=== PATIENT | female | born 1945 | race Two or more races ===

== ENCOUNTER 2019-04-30 11:57 | Inpatient (IN) | payer MEDICARE, OTHER ==
[~2019-04-30] VITALS: Ht 152.4 cm; Wt 39.0 kg
--- NOTE | 2019-04-30 12:30 | NUR ---
PATIENT ASSISTED TO RESTROOM, AMBULATORY. SCREAMING AND FIGHTING WITH SISTER.
--- NOTE | 2019-04-30 12:30 | NUR ---
BIB Family (sister) For "Psych evaluation" Pt agitated/restless. Anxious appears unkempt. PATIENT A/OX2-3, AGITATED AND RESTLESS. SCREAMING AT SISTER. NO DISTRESS NOTED.
[2019-04-30 12:33] LABS: APPEARANCE,URINE Clear (CLEAR); BILIRUBIN,URINE Negative (NEGATIVE); BLOOD, URINE Large Ery/uL (NEGATIVE); COLOR,URINE Yellow (YELLOW); KETONES,URINE Negative (NEGATIVE); LEUKOCYTE ESTERASE ,URINE Small (NEGATIVE); NITRITE, URINE Negative (NEGATIVE); PH,URINE 5.5 (5.0-8.0); PROTEIN,URINE 30 mg/dl (NEGATIVE); UGLUCOSE Negative (NEGATIVE); UROBILINOGEN,URINE 0.2 EU/dL (0.2)
[2019-04-30 12:39] LABS: BACTERIA,URINE Few /HPF (None Seen); SQUAMOUS EPITHELIAL CELL,UR Few /HPF (None Seen)
[2019-04-30 12:43] LABS: BASOPHILS # (AUTO) 0.1 /CMM (0.0-0.2); BASOPHILS % (AUTO) 0.5 % (0.0-2.0); EOSINOPHILS % (AUTO) 0.7 % (0.0-6.0); HEMATOCRIT 44 % (33-45); HEMOGLOBIN 15.1 g/dL (11.5-14.8); LYMPHOCYTES # (AUTO) 1.6 /CMM (0.8-4.8); LYMPHOCYTES % (AUTO) 14.1 % (20.0-44.0); MEAN CORPUSCULAR HGB CONC 34 g/dl (31.0-36.0); MEAN CORPUSCULAR VOLUME 91 fL (82-100); MONOCYTES % (AUTO) 8.3 % (2.0-12.0); NEUTROPHILS # (AUTO) 8.7 /CMM (1.8-8.9); NEUTROPHILS % (AUTO) 76.4 % (43.0-81.0); PLATELET COUNT (AUTO) 295 /CMM (150-450); RED BLOOD CELL COUNT(AUTO) 4.86 MIL/uL (4.0-5.2); WHITE BLOOD COUNT (AUTO) 11.4 K/uL (4.3-11.0)
[2019-04-30] MEDS ORDERED: HALOPERIDOL LACTATE INJ 5 MG/ML VIAL ONE (12:44)
[2019-04-30 12:51] LABS: CALCIUM, SERUM 9.5 mg/dL (8.5-10.1); CARBON DIOXIDE 23 mmol/L (21-32); CHLORIDE 97 mmol/L (98-107); CREATININE 0.7 mg/dL (0.6-1.3); GLUCOSE 117 mg/dL (74-106); POTASSIUM 3.4 mmol/L (3.5-5.1); SODIUM SERUM 133 mmol/L (136-145); UREA NITROGEN, BLOOD 26 mg/dL (7-18)
[2019-04-30] MEDS ORDERED: HALOPERIDOL LACTATE INJ 5 MG/ML VIAL IM ONE (13:00)
[2019-04-30 13:04] LABS: ALANINE AMINOTRANSFERASE 36 U/L (12-78); ALBUMIN 4.1 g/dL (3.4-5.0); ALCOHOL, BLOOD < 3 mg/dL (0-0); ALKALINE PHOSPHATASE 70 U/L (46-116); ASPARTATE AMINOTRANSFERASE 33 U/L (15-37); BILIRUBIN,DIRECT 0.1 mg/dL (0.0-0.2); BILIRUBIN,TOTAL 0.4 mg/dL (0.2-1.0); TOTAL PROTEIN, SERUM 7.5 g/dL (6.4-8.2)
[2019-04-30 13:05] LABS: SALICYLATE 1.7 mg/dL (2.8-20.0)
[2019-04-30 13:06] LABS: ACETAMINOPHEN 0 ug/ml (10-30)
[2019-04-30] MEDS ORDERED: SIMV-46 PO (13:06)
[2019-04-30] MEDS ORDERED: LOSA50TA39 PO (13:06)
[2019-04-30] MEDS ORDERED: HYDR25TA4 PO (13:06)
[2019-04-30] MEDS ORDERED: METO-357 PO (13:06)
[2019-04-30] MEDS ORDERED: FAMO40TA7 PO (13:06)
[2019-04-30] MEDS ORDERED: DIPH50CA38 PO (13:06)
[2019-04-30] MEDS ORDERED: ALPR0.5T8 PO (13:06)
[2019-04-30] MEDS ORDERED: FLUR30CA13 PO (13:06)
[2019-04-30] MEDS ORDERED: FOLI0.8T PO (13:06)
[2019-04-30] MEDS ORDERED: LISI40TA4 PO (13:06)
--- NOTE | 2019-04-30 13:21 | NUR ---
HEALTH CARE AIDE ELDA FAJARDO AT BEDSIDE
--- NOTE | 2019-04-30 13:43 | NUR ---
GOT BED 219.B
--- NOTE | 2019-04-30 14:01 | NUR ---
report given to mayuri fischer.
--- NOTE | 2019-04-30 14:01 | NUR ---
patient refused ekg. explained risks and benefits, still refused. Dr. Vargas made aware
--- NOTE | 2019-04-30 14:53 | NUR ---
patient transferred to [facility] via wheelchair. in stable condition.
[2019-04-30] MEDS ORDERED: MAG HYDROX/AL HYDROX/SIMETH 30 ML UDC PO PRN (15:00)
[2019-04-30] MEDS ORDERED: BLOOD SUGAR DIAGNOSTIC 1 EACH STRIP IN ONE (15:00)
[2019-04-30] MEDS ORDERED: MAGNESIUM HYDROXIDE 30 ML UDC PO PRN (15:00)
[2019-04-30] MEDS ORDERED: ACETAMINOPHEN 325 MG TABLET PO PRN (15:00)
--- NOTE | 2019-04-30 15:40 | NUR ---
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 ACCORDING TO HOLD AND SISTER PATIENT IS SEEING PEOPLE WHERE SHE LIVES AND SEEING THOSE PEOPLE GOING THROUGH [place]. PATIENT IS HITTING HER SISTER CAUSING BRUISING. PATIENT IS MANIC, AGITATED AND AGGRESSIVE. PATIENT IS SPRAYING FOOD WITH LYSOL. PATIENT CAME FROM HOME AND LIVES ALONE. UPON FACE TO FACE ASSESSMENT PATIENT IS MALODOROUS, DISHEVELED, WEARING DIRTY CLOTHES AND MULTIPLE LAYERS. PATIENT IS AGITATED, UPSET, AND ANGRY. DENIES SUICIDAL OR HOMICIDAL IDEATION. PATIENT REFUSED SKIN ASSESSMENT. PATIENT RIGHTS HANDBOOK AND GUIDE TO PRESCRIPTIONS GIVEN. BP IS 205/108. DR. PICKENS NOTIFIED OF ADMISSION AND BLOOD PRESSURE. MEDICATION BEING RECONCILED. DR. MEYERS NOTIFIED OF ADMISSION WITH ORDERS.
[2019-04-30 16:00] VITALS: BP 189/100
[2019-04-30] MEDS ORDERED: diphenhydrAMINE HCL 50 MG CAPSULE PO PRN (16:00)
[2019-04-30] MEDS ORDERED: FAMOTIDINE 40 MG TABLET PO PRN (16:00)
[2019-04-30 16:05] VITALS: BP 205/108
[2019-04-30] MEDS: AMLODIPINE BESYLATE 5 MG TABLET PO SCH (16:17)
[2019-04-30] MEDS: LORAZEPAM 0.5 MG TABLET PO PRN (16:17)
[2019-04-30] MEDS: METOPROLOL SUCCINATE 50 MG TAB.SR.24H PO SCH (16:27)
[2019-04-30] MEDS: LISINOPRIL (20MG) 20 MG TABLET PO SCH ×2 (16:30→18:22)
[2019-04-30] MEDS: FOLIC ACID 1 MG TABLET PO SCH (17:00)
[2019-04-30] MEDS: LOSARTAN POTASSIUM 50 MG TABLET PO SCH (17:00)
[2019-04-30] MEDS ORDERED: ALPRAZOLAM 0.5 MG TABLET PO SCH (17:00)
[2019-04-30 17:16] VITALS: BP 202/101
[2019-04-30 18:17] VITALS: BP 208/104
[2019-04-30] MEDS: SIMVASTATIN 20 MG TABLET PO SCH (18:33)
[2019-04-30] MEDS: hydrALAZINE HCL 50 MG TABLET PO ONE ×2 (18:33→18:45)
--- NOTE | 2019-04-30 18:45 | NUR ---
PT SPIT OUT HYDRALAZINE. AFTER EDUCATION WITH A COUPLE RN SHE AGREED TO TAKE IT. DR. PICKENS IS PUTTING THE ORDER IN. LAST BP 208/104
[2019-04-30] MEDS ORDERED: hydrALAZINE HCL 50 MG TABLET PO ONE (19:00)
[2019-04-30] MEDS: SULFAMETH/TRIMETH 800/160 MG 1 UDTAB TABLET PO SCH (20:06)
[2019-04-30 20:52] VITALS: BP 182/110
[2019-04-30] MEDS: TEMAZEPAM 7.5 MG CAPSULE PO PRN (21:15)
[2019-04-30] MEDS ORDERED: FLURAZEPAM HCL 30 MG PO SCH (22:00)
[2019-04-30 22:30] VITALS: BP 154/81
[2019-05-01 07:10] LABS: BASOPHILS % (AUTO) 0.5 % (0.0-2.0); EOSINOPHILS % (AUTO) 1.3 % (0.0-6.0); HEMATOCRIT 41 % (33-45); HEMOGLOBIN 14.2 g/dL (11.5-14.8); MEAN CORPUSCULAR HGB CONC 34 g/dl (31.0-36.0); MEAN CORPUSCULAR VOLUME 91 fL (82-100); MONOCYTES # (AUTO) 0.7 /CMM (0.1-1.30); MONOCYTES % (AUTO) 9.8 % (2.0-12.0); NEUTROPHILS # (AUTO) 5.1 /CMM (1.8-8.9); NEUTROPHILS % (AUTO) 73.4 % (43.0-81.0); PLATELET COUNT (AUTO) 262 /CMM (150-450); RED BLOOD CELL COUNT(AUTO) 4.56 MIL/uL (4.0-5.2)
[2019-05-01 07:44] LABS: ALBUMIN 3.6 g/dL (3.4-5.0); BILIRUBIN,TOTAL 0.7 mg/dL (0.2-1.0); CALCIUM, SERUM 8.7 mg/dL (8.5-10.1); CREATININE 0.8 mg/dL (0.6-1.3); TOTAL PROTEIN, SERUM 6.5 g/dL (6.4-8.2)
[2019-05-01 07:54] LABS: CHOLESTEROL 170 mg/dL (<200); HDL CHOLESTEROL 74 mg/dL (40-60); LDL 70 mg/dL (0-99); TRIGLYCERIDES 114 mg/dL (30-150)
[2019-05-01 08:00] VITALS: BP 147/74
[2019-05-01] MEDS ORDERED: FIXODENT 1 EA TUBE MM PRN (08:00)
[2019-05-01] MEDS: SULFAMETH/TRIMETH 800/160 MG 1 UDTAB TABLET PO SCH ×2 (08:38→21:13)
[2019-05-01] MEDS: AMLODIPINE BESYLATE 5 MG TABLET PO SCH (08:38)
[2019-05-01] MEDS: METOPROLOL SUCCINATE 50 MG TAB.SR.24H PO SCH ×2 (08:39→21:14)
[2019-05-01] MEDS: FOLIC ACID 1 MG TABLET PO SCH ×2 (08:39→16:59)
[2019-05-01] MEDS: LOSARTAN POTASSIUM 50 MG TABLET PO SCH ×2 (08:39→16:59)
[2019-05-01] MEDS: LISINOPRIL (20MG) 20 MG TABLET PO SCH (08:41)
[2019-05-01] MEDS: POTASSIUM CHLORIDE 20 MEQ TAB.PRT.SR PO SCH ×3 (11:30→13:10)
--- NOTE | 2019-05-01 11:36 | NUR ---
Contact with DPOA: NILSON contacted the pt.s sister/DPOA, Chika Turcios [phone] to discuss discharge planning and treatment plan. Chika expressed understanding and requested that contact Chika. NILSON informed Elliot from [employer] and left a note for Dr. Hughes. Per Chika, she plans to visit the pt. after 4 pm. NILSON informed pt. and pt. was glad to hear that.
--- NOTE | 2019-05-01 11:38 | NUR ---
Initial Discharge plan: The pt. currently lives alone at home [[address] [place], [address]; [phone]]. Per pt. she would like to return there once ready for discharge. NILSON spoke to pt.'s DPOA/Sister, Chika Turcios [phone] who stated that she would like the pt. to go to [facility] [[address] [place] [address]; [phone]] if the pt. requires close supervision at the time of discharge. Per Chika, if pt. is back to baseline and does not require close supervision, she is comfortable with pt. returning home. Per Chika, she can then support the pt. as needed. NILSON or other SW will collaborate with IDT to ensure safe and proper discharge planning.
[2019-05-01] MEDS: ENSURE ENLIVE 237 ML LIQUID (VANILLA) PO SCH ×2 (13:45→17:00)
[2019-05-01 16:00] VITALS: BP 128/66
[2019-05-01] MEDS: SIMVASTATIN 20 MG TABLET PO SCH (17:00)
[2019-05-01 19:59] VITALS: BP 145/68
[2019-05-01] MEDS: risperiDONE-M 0.5 MG TAB.RAPDIS PO SCH (20:05)
[2019-05-01] MEDS: LORAZEPAM 0.5 MG TABLET PO PRN (22:01)
[2019-05-01 23:00] VITALS: BP 135/80
[2019-05-02] MEDS: TEMAZEPAM 7.5 MG CAPSULE PO PRN (01:38)
--- NOTE | 2019-05-02 06:37 | NUR ---
RN NOTES: PT. RESTING WELL IN NIGHTS AND MED COMPLY, NO ACUTE DISTRESS NOTED, DENIES ANY DISCOMFORT , BUT PT. REFUSED TO TAKING SHOWER , REFUSED TO CHANGE HOSPITAL GOWN, ENCOURAGE AND MOTIVATED , WILL CONTINUITY WITH CARE.
--- NOTE | 2019-05-02 06:47 | NUR ---
RN NOTES: PT. REFUSED AM LABS , ENCOURGED X3 STILL REFUSED , ENDORSE TO ON COMING NURSE FOR CONTINUITY WITH CARE.
[2019-05-02 08:00] VITALS: BP 146/86
[2019-05-02] MEDS: SULFAMETH/TRIMETH 800/160 MG 1 UDTAB TABLET PO SCH ×2 (08:31→20:26)
[2019-05-02] MEDS: FOLIC ACID 1 MG TABLET PO SCH ×2 (08:31→16:28)
[2019-05-02] MEDS: AMLODIPINE BESYLATE 5 MG TABLET PO SCH (08:32)
[2019-05-02] MEDS: LOSARTAN POTASSIUM 50 MG TABLET PO SCH ×2 (08:32→16:28)
[2019-05-02] MEDS: METOPROLOL SUCCINATE 50 MG TAB.SR.24H PO SCH ×2 (08:32→20:26)
[2019-05-02] MEDS: LISINOPRIL (20MG) 20 MG TABLET PO SCH (08:33)
[2019-05-02] MEDS: ENSURE ENLIVE 237 ML LIQUID (VANILLA) PO SCH ×3 (08:38→17:00)
[2019-05-02 09:45] LABS: CALCIUM, SERUM 8.8 mg/dL (8.5-10.1); CREATININE 1.2 mg/dL (0.6-1.3); POTASSIUM 4.3 mmol/L (3.5-5.1)
[2019-05-02 16:00] VITALS: BP 135/63
[2019-05-02] MEDS: SIMVASTATIN 20 MG TABLET PO SCH (18:20)
[2019-05-02] MEDS: risperiDONE-M 0.5 MG TAB.RAPDIS PO SCH (19:51)
[2019-05-02 20:30] VITALS: BP 142/68
[2019-05-03] MEDS: TEMAZEPAM 7.5 MG CAPSULE PO PRN ×2 (02:09→23:15)
[2019-05-03 08:00] VITALS: BP 149/81
[2019-05-03] MEDS: FOLIC ACID 1 MG TABLET PO SCH ×2 (08:11→16:15)
[2019-05-03] MEDS: SULFAMETH/TRIMETH 800/160 MG 1 UDTAB TABLET PO SCH (08:11)
[2019-05-03] MEDS: LISINOPRIL (20MG) 20 MG TABLET PO SCH (08:12)
[2019-05-03] MEDS: AMLODIPINE BESYLATE 5 MG TABLET PO SCH (08:12)
[2019-05-03] MEDS: METOPROLOL SUCCINATE 50 MG TAB.SR.24H PO SCH ×2 (08:12→20:34)
[2019-05-03] MEDS: LOSARTAN POTASSIUM 50 MG TABLET PO SCH ×2 (08:12→16:15)
[2019-05-03] MEDS: ENSURE ENLIVE 237 ML LIQUID (VANILLA) PO SCH ×3 (09:03→17:00)
[2019-05-03 16:00] VITALS: BP 148/79
[2019-05-03] MEDS: SIMVASTATIN 20 MG TABLET PO SCH (18:05)
[2019-05-03 20:17] VITALS: BP 148/76
[2019-05-03] MEDS: risperiDONE-M 0.5 MG TAB.RAPDIS PO SCH (20:33)
[2019-05-04 08:00] VITALS: BP 153/90
[2019-05-04] MEDS: AMLODIPINE BESYLATE 5 MG TABLET PO SCH (08:42)
[2019-05-04] MEDS: LISINOPRIL (20MG) 20 MG TABLET PO SCH (08:42)
[2019-05-04] MEDS: FOLIC ACID 1 MG TABLET PO SCH ×2 (08:42→17:09)
[2019-05-04] MEDS: METOPROLOL SUCCINATE 50 MG TAB.SR.24H PO SCH ×2 (08:43→20:24)
[2019-05-04] MEDS: LOSARTAN POTASSIUM 50 MG TABLET PO SCH ×2 (08:43→17:09)
[2019-05-04] MEDS: ENSURE ENLIVE 237 ML LIQUID (VANILLA) PO SCH ×3 (08:53→17:00)
--- NOTE | 2019-05-04 10:25 | NUR ---
DPOA Contact: NILSON called the pts sister/DPOA, Chika Turcios ([phone]), and informed her that she saw a note stating that she would like the pt to go to [facility] [place]. She stated that she does not think that the pt can return to her home this week because it will not be in a proper living condition. She stated that she spoke to Elpidio at the facility and they stated that the pt can stay short term and then be discharged back to her home once it is ready. NILSON stated that she will send a referral.
[2019-05-04 16:00] VITALS: BP 150/90
--- NOTE | 2019-05-04 16:18 | NUR ---
SS Group Note 05/04/19: SW went to patient's room to invite patient to attend today's support group at 2:00pm regarding recognizing positive aspects in their life. Patient refused stating, "I don't want to go to that". SW encouraged patient to sit in and listen but patient refused.
[2019-05-04] MEDS: SIMVASTATIN 20 MG TABLET PO SCH (18:08)
[2019-05-04] MEDS ORDERED: risperiDONE-M 0.5 MG TAB.RAPDIS PO SCH (20:00)
[2019-05-04 21:07] VITALS: BP 149/90
[2019-05-04] MEDS: BENZTROPINE MESYLATE (1 MG) 1 MG TABLET PO SCH (22:33)
[2019-05-04] MEDS: TEMAZEPAM 7.5 MG CAPSULE PO PRN (23:36)
--- NOTE | 2019-05-04 23:39 | NUR ---
[facility]PS RN NOTES: PT C/O UNABLE TO SLEEP. OFFERED PT RESTORIL 7.5MG PO PRN ORDERED. PT AGREED TO TAKE MEDICATION NEEDED. ADMINISTERED MEDICATION. PT TOLERATED WELL. CONTINUE TO MONITOR.
[2019-05-05 08:00] VITALS: BP 147/77
[2019-05-05] MEDS: LOSARTAN POTASSIUM 50 MG TABLET PO SCH ×2 (09:18→17:24)
[2019-05-05] MEDS: AMLODIPINE BESYLATE 5 MG TABLET PO SCH (09:19)
[2019-05-05] MEDS: LISINOPRIL (20MG) 20 MG TABLET PO SCH (09:19)
[2019-05-05] MEDS: ENSURE ENLIVE 237 ML LIQUID (VANILLA) PO SCH ×3 (09:20→16:56)
[2019-05-05] MEDS: FOLIC ACID 1 MG TABLET PO SCH ×2 (09:20→17:23)
[2019-05-05] MEDS: METOPROLOL SUCCINATE 50 MG TAB.SR.24H PO SCH ×2 (09:20→20:37)
--- NOTE | 2019-05-05 10:21 | NUR ---
PC Hearing Notification: SW called the pts sister/DPOA, Chika Turcios ([phone]), and informed her that the pt will be having a hearing today and explained what that would entail.
[2019-05-05] MEDS: DIVALPROEX SODIUM 125 MG CAP.SPRINK PO SCH ×2 (13:00→20:41)
--- NOTE | 2019-05-05 14:03 | NUR ---
SNF Referral: SW faxed a SNF referral to [facility] with attn to Radha to the fax number: [phone].
[2019-05-05 16:00] VITALS: BP 142/76
[2019-05-05] MEDS: SIMVASTATIN 20 MG TABLET PO SCH (17:24)
[2019-05-05] MEDS: risperiDONE-M 0.5 MG TAB.RAPDIS PO SCH (20:37)
[2019-05-05 21:08] VITALS: BP 151/76
[2019-05-05] MEDS: BENZTROPINE MESYLATE (1 MG) 1 MG TABLET PO SCH (22:45)
[2019-05-05] MEDS: TEMAZEPAM 7.5 MG CAPSULE PO PRN (23:10)
--- NOTE | 2019-05-05 23:15 | NUR ---
given restoril 7.5 mg per patients request d/t unable to sleep. will continue to monitor closely.
[2019-05-06 08:00] VITALS: BP 146/79
[2019-05-06] MEDS: risperiDONE 1 MG TABLET PO SCH (09:00)
[2019-05-06] MEDS: ENSURE ENLIVE 237 ML LIQUID (VANILLA) PO SCH ×3 (09:00→16:44)
[2019-05-06] MEDS: LOSARTAN POTASSIUM 50 MG TABLET PO SCH ×2 (09:27→16:44)
[2019-05-06] MEDS: FOLIC ACID 1 MG TABLET PO SCH ×2 (09:27→16:42)
[2019-05-06] MEDS: DIVALPROEX SODIUM 125 MG CAP.SPRINK PO SCH ×2 (09:27→21:28)
[2019-05-06] MEDS: AMLODIPINE BESYLATE 5 MG TABLET PO SCH (09:27)
[2019-05-06] MEDS: LISINOPRIL (20MG) 20 MG TABLET PO SCH (09:27)
[2019-05-06] MEDS: METOPROLOL SUCCINATE 50 MG TAB.SR.24H PO SCH ×2 (09:28→21:27)
[2019-05-06 16:00] VITALS: BP 144/77
[2019-05-06] MEDS: SIMVASTATIN 20 MG TABLET PO SCH (16:45)
[2019-05-06] MEDS: risperiDONE-M 0.5 MG TAB.RAPDIS PO SCH (19:55)
[2019-05-06 20:00] VITALS: BP 151/84
[2019-05-06] MEDS: BENZTROPINE MESYLATE (1 MG) 1 MG TABLET PO SCH (21:27)
[2019-05-06 22:08] VITALS: BP 151/84
[2019-05-06] MEDS: TEMAZEPAM 7.5 MG CAPSULE PO PRN (23:02)
[2019-05-07 08:00] VITALS: BP 161/81
[2019-05-07] MEDS: DIVALPROEX SODIUM 125 MG CAP.SPRINK PO SCH ×2 (09:00→22:36)
[2019-05-07] MEDS: FOLIC ACID 1 MG TABLET PO SCH ×2 (09:00→17:53)
[2019-05-07] MEDS: risperiDONE 1 MG TABLET PO SCH (09:00)
[2019-05-07] MEDS: LOSARTAN POTASSIUM 50 MG TABLET PO SCH ×2 (09:01→17:54)
[2019-05-07] MEDS: LISINOPRIL (20MG) 20 MG TABLET PO SCH (09:01)
[2019-05-07] MEDS: METOPROLOL SUCCINATE 50 MG TAB.SR.24H PO SCH ×3 (09:24→21:34)
[2019-05-07] MEDS: ENSURE ENLIVE 237 ML LIQUID (VANILLA) PO SCH ×3 (09:25→17:56)
[2019-05-07] MEDS: AMLODIPINE BESYLATE 5 MG TABLET PO SCH (09:25)
--- NOTE | 2019-05-07 10:00 | NUR ---
ms rn patient is compliant,to her care, though sister is so demanding and weird.
[2019-05-07 16:00] VITALS: BP 170/86
[2019-05-07] MEDS: HYDROCHLOROTHIAZIDE 25 MG TABLET PO PRN (17:55)
[2019-05-07] MEDS: SIMVASTATIN 20 MG TABLET PO SCH (18:47)
[2019-05-07] MEDS: risperiDONE-M 0.5 MG TAB.RAPDIS PO SCH (20:22)
[2019-05-07 21:03] VITALS: BP 143/84
[2019-05-07] MEDS: BENZTROPINE MESYLATE (1 MG) 1 MG TABLET PO SCH (21:36)
[2019-05-08 08:00] VITALS: BP 155/87
[2019-05-08] MEDS: LISINOPRIL (20MG) 20 MG TABLET PO SCH (08:14)
[2019-05-08] MEDS: METOPROLOL SUCCINATE 50 MG TAB.SR.24H PO SCH ×2 (08:14→20:45)
[2019-05-08] MEDS: LOSARTAN POTASSIUM 50 MG TABLET PO SCH ×2 (08:15→17:52)
[2019-05-08] MEDS: AMLODIPINE BESYLATE 5 MG TABLET PO SCH (08:15)
[2019-05-08] MEDS: FOLIC ACID 1 MG TABLET PO SCH ×2 (08:15→17:52)
[2019-05-08] MEDS: risperiDONE 1 MG TABLET PO SCH (08:16)
[2019-05-08] MEDS: ENSURE ENLIVE 237 ML LIQUID (VANILLA) PO SCH ×3 (08:30→17:51)
[2019-05-08] MEDS: DIVALPROEX SODIUM 125 MG CAP.SPRINK PO SCH ×2 (08:30→21:36)
[2019-05-08 16:00] VITALS: BP 148/77
[2019-05-08] MEDS: SIMVASTATIN 20 MG TABLET PO SCH (17:51)
[2019-05-08] MEDS: risperiDONE-M 0.5 MG TAB.RAPDIS PO SCH (20:09)
[2019-05-08 20:26] VITALS: BP 154/84
[2019-05-08] MEDS: BENZTROPINE MESYLATE (1 MG) 1 MG TABLET PO SCH (21:35)
[2019-05-09] MEDS: TEMAZEPAM 7.5 MG CAPSULE PO PRN ×2 (00:36→23:14)
[2019-05-09 06:56] LABS: BASOPHILS % (AUTO) 0.8 % (0.0-2.0); HEMATOCRIT 36 % (33-45); HEMOGLOBIN 12.5 g/dL (11.5-14.8); LYMPHOCYTES # (AUTO) 0.7 /CMM (0.8-4.8); LYMPHOCYTES % (AUTO) 11.9 % (20.0-44.0); MEAN CORPUSCULAR HGB CONC 35 g/dl (31.0-36.0); MEAN CORPUSCULAR VOLUME 90 fL (82-100); MONOCYTES # (AUTO) 0.7 /CMM (0.1-1.30); MONOCYTES % (AUTO) 12.7 % (2.0-12.0); NEUTROPHILS # (AUTO) 4.2 /CMM (1.8-8.9); NEUTROPHILS % (AUTO) 71.6 % (43.0-81.0); PLATELET COUNT (AUTO) 234 /CMM (150-450); RED BLOOD CELL COUNT(AUTO) 3.95 MIL/uL (4.0-5.2); WHITE BLOOD COUNT (AUTO) 5.8 K/uL (4.3-11.0)
[2019-05-09 07:58] LABS: ALBUMIN 2.9 g/dL (3.4-5.0); BILIRUBIN,TOTAL 0.5 mg/dL (0.2-1.0); CALCIUM, SERUM 8.4 mg/dL (8.5-10.1); CREATININE 0.6 mg/dL (0.6-1.3); POTASSIUM 4.2 mmol/L (3.5-5.1)
[2019-05-09 08:00] VITALS: BP 156/80
[2019-05-09] MEDS: LOSARTAN POTASSIUM 50 MG TABLET PO SCH ×2 (08:24→17:22)
[2019-05-09] MEDS: AMLODIPINE BESYLATE 5 MG TABLET PO SCH (08:24)
[2019-05-09] MEDS: DIVALPROEX SODIUM 125 MG CAP.SPRINK PO SCH (08:24)
[2019-05-09] MEDS: FOLIC ACID 1 MG TABLET PO SCH ×2 (08:25→17:22)
[2019-05-09] MEDS: LISINOPRIL (20MG) 20 MG TABLET PO SCH (08:25)
[2019-05-09] MEDS: METOPROLOL SUCCINATE 50 MG TAB.SR.24H PO SCH ×2 (08:25→20:34)
[2019-05-09] MEDS: ENSURE ENLIVE 237 ML LIQUID (VANILLA) PO SCH ×3 (08:34→17:22)
[2019-05-09] MEDS: risperiDONE 1 MG TABLET PO SCH ×2 (08:34→08:49)
[2019-05-09 16:00] VITALS: BP 146/86
[2019-05-09] MEDS: SIMVASTATIN 20 MG TABLET PO SCH (17:22)
[2019-05-09] MEDS: risperiDONE-M 0.5 MG TAB.RAPDIS PO SCH (20:00)
[2019-05-09 20:41] VITALS: BP 147/80
[2019-05-09] MEDS: BENZTROPINE MESYLATE (1 MG) 1 MG TABLET PO SCH (21:29)
[2019-05-10] MEDS: ENSURE ENLIVE 237 ML LIQUID (VANILLA) PO SCH ×3 (07:54→17:02)
[2019-05-10 08:00] VITALS: BP 139/83
[2019-05-10] MEDS: AMLODIPINE BESYLATE 5 MG TABLET PO SCH (08:15)
[2019-05-10] MEDS: risperiDONE 1 MG TABLET PO SCH (08:15)
[2019-05-10] MEDS: FOLIC ACID 1 MG TABLET PO SCH ×2 (08:15→17:02)
[2019-05-10] MEDS: METOPROLOL SUCCINATE 50 MG TAB.SR.24H PO SCH ×2 (08:15→20:14)
[2019-05-10] MEDS: HYDROCHLOROTHIAZIDE 25 MG TABLET PO PRN (08:16)
[2019-05-10] MEDS: LOSARTAN POTASSIUM 50 MG TABLET PO SCH ×2 (08:17→17:02)
[2019-05-10] MEDS: LISINOPRIL (20MG) 20 MG TABLET PO SCH (08:22)
[2019-05-10 16:00] VITALS: BP 130/78
[2019-05-10] MEDS: SIMVASTATIN 20 MG TABLET PO SCH (17:02)
[2019-05-10] MEDS: risperiDONE-M 0.5 MG TAB.RAPDIS PO SCH (20:12)
[2019-05-10 20:24] VITALS: BP 138/76
[2019-05-10] MEDS: BENZTROPINE MESYLATE (1 MG) 1 MG TABLET PO SCH (21:33)
[2019-05-11 07:03] LABS: BILIRUBIN,TOTAL 0.5 mg/dL (0.2-1.0); CALCIUM, SERUM 8.6 mg/dL (8.5-10.1); CREATININE 0.7 mg/dL (0.6-1.3); POTASSIUM 4.4 mmol/L (3.5-5.1); TOTAL PROTEIN, SERUM 6.1 g/dL (6.4-8.2)
[2019-05-11 07:12] LABS: BASOPHILS % (AUTO) 0.7 % (0.0-2.0); EOSINOPHILS % (AUTO) 3.1 % (0.0-6.0); HEMATOCRIT 36 % (33-45); HEMOGLOBIN 12.6 g/dL (11.5-14.8); LYMPHOCYTES # (AUTO) 0.8 /CMM (0.8-4.8); LYMPHOCYTES % (AUTO) 15.7 % (20.0-44.0); MEAN CORPUSCULAR HGB CONC 35 g/dl (31.0-36.0); MEAN CORPUSCULAR VOLUME 90 fL (82-100); MONOCYTES # (AUTO) 0.8 /CMM (0.1-1.30); MONOCYTES % (AUTO) 15.8 % (2.0-12.0); NEUTROPHILS # (AUTO) 3.1 /CMM (1.8-8.9); NEUTROPHILS % (AUTO) 64.7 % (43.0-81.0); PLATELET COUNT (AUTO) 257 /CMM (150-450); RED BLOOD CELL COUNT(AUTO) 3.99 MIL/uL (4.0-5.2); WHITE BLOOD COUNT (AUTO) 4.9 K/uL (4.3-11.0)
[2019-05-11 08:00] VITALS: BP 140/73
[2019-05-11] MEDS: LISINOPRIL (20MG) 20 MG TABLET PO SCH (09:19)
[2019-05-11] MEDS: FOLIC ACID 1 MG TABLET PO SCH (09:19)
[2019-05-11] MEDS: risperiDONE 1 MG TABLET PO SCH (09:20)
[2019-05-11] MEDS: METOPROLOL SUCCINATE 50 MG TAB.SR.24H PO SCH (09:20)
[2019-05-11 09:37] VITALS: BP 140/73
[2019-05-11] MEDS: ENSURE ENLIVE 237 ML LIQUID (VANILLA) PO SCH ×2 (09:37→12:32)
[2019-05-11] MEDS: AMLODIPINE BESYLATE 5 MG TABLET PO SCH (09:37)
[2019-05-11] MEDS: LOSARTAN POTASSIUM 50 MG TABLET PO SCH (09:37)
--- NOTE | 2019-05-11 12:21 | NUR ---
DPOA Contact: SW called the pts sister/DPOA, Chika Turcios ([phone]), who stated that she is already here in the hospital and will be picking up the pt to take her home.
--- NOTE | 2019-05-11 15:10 | NUR ---
Discharge Note: Pt was discharged back to her [address] at [address] [place], [address]; [phone]. Pts DPOA, Chika Turcios ([phone]), will be picked up the pt around 1:30PM. Upon discharge, the pt appeared to be in a dysphoric mood and presented with a distressed affect. Pt denied both suicidal and homicidal ideation as well as auditory and visual hallucinations. Pt denied both auditory and visual hallucinations. Pt will be under the care of psychiatrist, Dr. Karan Ron, located at [address], [place] [address]; ; and a fax of records was sent to: [phone]. Pt will also be under the care of her time study technician, Dr. John Patricio, located at [address] [place] [address]; .
--- NOTE | 2019-05-11 16:15 | NUR ---
TUBING OILER NOTE: 73 YEAR OLD FEMALE DISCHARGED TO HOME IN STABLE CONDITION. COMPLIANT WITH MEDICATIONS, COOPERATIVE WITH TREATMENT PLAN. PT DENIES SI/HI AND INSTRUCTED TO GO TO THE CLOSEST ER IF DEVELOPING SI/HI. BEHAVIOR IMPROVED, PSYCHIATRIC TREATMENT PLANS MET, MEDICAL PLANS DEFERRED FOR CONTINUAL MONITORING. EDUCATED PT ABOUT THE AFTER CARE PLAN, EXIT CARE AND COPY PROVIDED. RETURNED PERSONAL BELONGINGS TO PATIENT. MEDICATIONS RECONCILED ITH DR MEYERS AND DR BUTLER. PT SIGNED DISCHARGE PAPER WORK. PT REFUSED SKIN ASSESSMENT ON ADMIT AND DISCHARGE. PT LEFT THE UNIT AT 1615 WITH XANDER BALDERAS.
== END 2019-05-11 14:15 | disposition home or self-care (01) | DRG 885 ==
LOC: ER 11:57 → GPS 13:57
PROVIDERS: ADMIT Psychiatry & Neurology Psychosomatic Medicine; ATTEND Hospitalist
DX: F25.0 Schizoaffective disorder, bipolar type (principal); N39.0 Urinary tract infection, site not specified; I10 Essential (primary) hypertension; F03.90 Unspecified dementia, unspecified severity, without behavioral disturbance, psychotic disturbance, mood disturbance, and anxiety; F09 Unspecified mental disorder due to known physiological condition; F19.10 Other psychoactive substance abuse, uncomplicated; Z91.14 Patient's other noncompliance with medication regimen; F41.9 Anxiety disorder, unspecified
CPT/HCPCS: 36415; 80048-TC; 80053-TC; 80061-TC; 80076-TC; 80164-TC; 80305; 81000-TC; 85025-TC; 87081-TC; 87086-TC; G0480; J1630; Q0163